=== PATIENT | female | born 1965 | race American Indian/Alaskan Native ===

== ENCOUNTER 2018-12-01 16:25 | Emergency (ER) | payer BC ==
[~2018-12-01] VITALS: Ht 162.6 cm; Wt 65.9 kg
[2018-12-01 16:29] VITALS: TEMP 98.7
[2018-12-01] MEDS ORDERED: CEPHALEXIN500 M1 PO (18:44)
[2018-12-01 20:20] VITALS: BP 120/64; PULSE 72
== END 2018-12-01 20:20 | disposition home or self-care (01) ==
LOC: COL.ER 16:25
DX: S63.277A Dislocation of unspecified interphalangeal joint of left little finger, initial encounter (principal); S61.217A Laceration without foreign body of left little finger without damage to nail, initial encounter; Z23 Encounter for immunization; W23.0XXA Caught, crushed, jammed, or pinched between moving objects, initial encounter; Y92.009 Unspecified place in unspecified non-institutional (private) residence as the place of occurrence of the external cause
CPT/HCPCS: Q4021